=== PATIENT | male | born 1985 | race Caucasian/White ===

== ENCOUNTER 2018-08-21 11:32 | Observation (INO) | payer OTHER ==
--- NOTE | 2018-08-20 21:26 | PDGENHP ---
History and Physical - Chief Complaint LEFT HIP PAIN - History of Present Illness 1.~Bilateral~Femoroacetabular impingement (BLAKE) Cam type,~with~resultant labral tear; LEFT SIDE SYMPTOMATIC 2.~Apponeurosis~syndrome LEFT ADDUCTOR 3.~Left~Sacroiliac Joint Pain HISTORY OF PRESENT ILLNESS: Calebis a 33 y.o.~very~~active male~who I have had the pleasure to consult on today. 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 ~Caleb enjoys running (100 miles/week), lifting, cycling, and yoga. Deangelo's~left~hip pain~started January 2018, with~no~recalled trauma or injury, and with no~previous complaints. Calebdoes not have~a known history of hip dysplasia. Presentation today is of~anterior, posterior, lateral,~groin~left~hip pain. ~ The hip~does not~wake him~at night and does~click and catch on him. Sitting~can be uncomfortable~for him.~Calebdoes not~report suffering from lower back pain episodes. Calebhas~participated in physical therapy (more than 6 weeks-months)~and has~tried other conservative measures including LEFT~hip injection~during MR arthrogram (no detected relief)~, dry needling, chiropractic treatments and massage therapy.~Yayo~has not~received sufficient symptomatic improvement. Calebhas not~utilized medication for pain management. Calebdenies issues with the right~hip. ~ Calebunderstands that he~has a hip and pelvis problem which should be researched and wishes to get a better understanding of his~hip status, followed by an establishment of a treatment strategy, hoping henrywould be able to get back to his~well being active life. History: Past medical history:~~ None which is relevant~ Relevant familial history:~None which is relevant~ Past surgical history:~ None Calebhas never received general anesthesia. I have reviewed, verified and agree with the past medical, surgical, family and social history. Current Medications:~has a current medication list which includes the following prescription(s): ergocalciferol (vitamin d2) and ferrous sulfate. ALLERGIES:~has No Known Allergies. Objective: Physical Examination: Calebis 5~feet 7~inches tall and weighs 140~Lbs. Calebis AAO x3; he~ is well-nourished, in NAD. Skin is warm and dry. ~Breathing is non-labored. ~CV with RRR by pulse. Abdomen is soft, NTND. Currently,~he~walks with a normal~gait. Trendelenburg sign is~negative~and proprioception is normal,~both~sides. He~presents with no~signs of joint laxity. Beightons Score:~0 Lower spine examination is~negative~for sciatic or femoral nerve irritation with negative~SLR &~femoral stretch tests. Range of motion of the spine is normal~for flexion, extension, and rotations, with no~associated pain. Strength, Sensation and pulses are~normal -~bilaterally Ankles and knees exams are~normal~and no~mal-alignment is evident. He~has no leg length discrepancy. Thigh circumference is~symmetric~with no evidence for muscle atrophy~on both~ sides. Hip ROM (degrees): FL ER At 90~hip FL IR At 90~hip FL AB AD EX IR Neutral hip ER Neutral hip R 95 45 20 40 5 10 40 45 L 105 40 20 35 5 10 40 45 Specific hip and pelvis tests: Impingement Test RAGHAVENDRA Roll Add. Longus R Negative Negative Negative Negative L +++ +++ Negative Negative Glut. Med ITB Posterior Imp R Negative 5/5 strength Negative 5/5 strength Negative L Negative 5/5 strength Negative 5/5 strength Negative Squeeze test measured~strong Bony Symphysis pubis is~pain free~to touch while concentric activity of the rectus abdominis, does not~produce pain at its insertion. Ilio Psos specific tests are~positive for pain during cycling for~the left hip~ and no snap. HF has~good strength, no pain~both hips. Anterior/posterior~capsule tenderness LEFT Greater trochanteric burse is~pain free~on both hips. Piriformis tests: FAIR is~negative,~with no~local signs of neuritis related to sciatic nerve. SIJs examination is~produces pain on~left side~with normal~RAGHAVENDRA in relation and local tenderness. Hamstrings tests are~negative~functional contraction and positive~tendinopathy both hips. On a daily basis, the following percentages reflectRamez's overall total pain: Deep hip:~80% SIJ:~20% Imaging: Radiology studies which I have personally reviewed, analyzed and measured are below: XR: AP of the hip and pelvis: Performed in a~good~technique Coccyx~at the level of the~pubic symphysis 0~degrees [place] Lines are~preserved. Minimal~Pathological signs are seen in the Symphysis Pubis. Minimal~Pathological signs are seen at the Ischial tuberosity. ~ Specific measurements show: NSA~ LCE Sourcil~Angle Sharp's angle Lat. Cam Lat. Pincer C.Over~sign Head~Coverage % ATDmm R N 32 4 38 + - - N N L N 33 6 37 + - 12-12:30 N N Pos. wall sign ISS NAD ~~Dysplasia Comments R Negative Negative 18.3~mm Negative L Negative Negative 15.5~mm Negative Sclerosis Sup. Lat. OA Cysts Joint Space-WBZ Joint Space-Medial R Negative negative + 4.7~mm 3.9~mm L Negative + + 4.7~mm 3.4~mm X Table lateral: Anterior cam lesion is~seen~on both hips.~(FAM View shows femoral neck~pitting~ cyst) Alpha Angle: ~ Right~71~dergrees Left~64~degrees MRI shows:~femoral neck~pitting~cyst, good cartilage quality, no bone edema, labral tear Impression and plan:Ayan Ellisis a 33 y.o.~active male~suffering from symptomatic Left~hip pain due to Bilateral~Femoroacetabular impingement (BLAKE) Cam type,~with~resultant labral tear~causing significant disability to him~and altering his~sport and life activities. Physical examination, imaging, and~his~story correspond with the diagnosis mentioned above. I explained that femoroacetabular impingement (BLAKE) arises due to a bony or soft tissue conflict between the femur (ball) and acetabulum (socket) caused by an abnormality in the shape of the hip joint. Over time, repetitive impingement can result in damage to the labrum and adjacent surface cartilage within the socket, ultimately giving rise to progressive osteoarthritis of the hip. I explained that although a labral tear can be a source of pain, it is rarely the root of the problem and typically occurs secondary to an underlying abnormality in the shape and mechanics of the hip joint. ~ I reviewed conservative treatment options for BLAKE including activity modification to avoid positions of impingement, physical therapy, non-steroidal anti-inflammatory medications, and various injections (corticosteroid and PRP) aimed at reducing inflammation in the hip joint or/and preventing dynamic impingement. PRP injections may promote healing and reduce symptoms in certain cases but it will not repair chronically damaged tissue. Although these measures may help to buy time and reduce current level of symptoms, they are not a definitive solution to the problem given the underlying abnormality in the shape of the hip joint. Patients who have failed conservative management and continue to experience symptoms are candidates for hip arthroscopy, a minimally invasive surgery that can definitively address the underlying problem. Hip arthroscopy typically includes treating the labrum with either repair or reconstruction of the torn labrum; as well as addressing the underlying abnormalities by restoring the normal shape to the hip joint. ~If the cartilage is damaged a Microfracture surgical procedure may also be necessary to help stimulate the growth of fibrocartilage. ~If a patient requires a labral reconstruction or a Microfracture, the initial rehabilitation from the surgery may take longer, but the [facility] results are typically favorable. I reviewed the technical aspects of hip arthroscopy including risks, benefits, and expected course of recovery.~Deangelo~understands that hip arthroscopy is a minimally invasive outpatient procedure carried out through small incisions on the outer aspect of the hip joint. During surgery, the labral tear will be identified and either repaired or reconstructed~using bone anchors and suture material. Additionally, any excessive bone will be removed with a high-speed hermelindo to reshape the hip joint and restore normal anatomy. Risks include infection, bleeding, injury to nearby nerves or vessels, stiffness, persistent pain, instability, venous thromboembolic disease, and traction related complications including temporary foot numbness. Rarely, revision surgery may be required to address these problems. Overall recovery takes approximately 4~ 8~months depending on the extent of damage and degree of repair. In the event that the labral tissue quality is inadequate for successful repair and healing,~Deangelo~understands that a labral reconstruction will be performed. This procedure entails placing a cadaver tissue graft within the hip joint and stabilizing it with bone anchors to build a new labrum. The overall recovery time for labral reconstruction is similar to that of labral repair, although the surgical procedure takes longer to perform. Deangelo~will review the info presented. In order to obtain more detailed information regarding the alignment, orientation, and shape of the bony hip and pelvis I will order a CT scan to be performed. The results of the CT scan, including femoral torsion and acetabular version measured values and 3D images, will aid me in deciding on the best treatment strategy and surgical pre-planning. Calebwill contact us if he~wishes to pursue further treatment in the future. Calebis happy with this plan. I have also supplied~him~with handouts, outlining the expected surgical treatment and rehab involved. I wish~DeangeloAyanall the best, ~~ Jean Blanco, PAC History Information - Allergies/Home Medication List Allergies/Adverse Reactions: No Known Allergies Allergy (Unverified 08/14/18 14:32) Home Medications: NK [No Known Home Meds] 08/14/18 [Last Taken Unknown] I have personally reviewed and updated: medical history - Social History Smoking Status: Never smoked Review of Systems Review of Systems: Physical Exam Physical Exam:
[2018-08-21] MEDS ORDERED: ceFAZolin 2 GM/DEXTROSE 100 ML IV ONE (11:45)
[2018-08-21] MEDS ORDERED: ACETAMINOPHEN 500 MG TAB PO ONE (11:45)
[2018-08-21] MEDS ORDERED: PREGABALIN 150 MG CAP PO ONE (11:45)
[2018-08-21] MEDS ORDERED: LR 1,000 ML IV ONE (11:47)
[2018-08-21] MEDS ORDERED: MIDAZOLAM 2 MG/2 ML VIAL IVP ONE (14:18)
--- NOTE | 2018-08-21 14:22 | PDANEPAE ---
ANE History of Present Illness 33year old with BLAKE ANE Past Medical History - Cardiovascular History Hx Hypertension: No Hx Arrhythmias: No Hx Chest Pain: No Hx Coronary Artery / Peripheral Vascular Disease: No Hx CHF / Valvular Disease: No Hx Palpitations: No - Pulmonary History Hx COPD: No Hx Asthma/Reactive Airway Disease: No Hx Recent Upper Respiratory Infection: No Hx Oxygen in Use at Home: No Hx Sleep Apnea: No Sleep Apnea Screening Result - Last Documented: Negative - Neurologic History Hx Cerebrovascular Accident: No Hx Seizures: No Hx Dementia: No - Endocrine History Hx Diabetes: No - Renal History Hx Renal Disorders: No - Liver History Hx Hepatic Disorders: No - Neurological & Psychiatric Hx Hx Neurological and Psychiatric Disorders: No - Cancer History Hx Cancer: No - Congenital Disorder History Hx Congenital Disorders: No - GI History Hx Gastrointestinal Disorders: No - Other Health History Other Health History: none - Chronic Pain History Chronic Pain: No - Surgical History Prior Surgeries: none ANE Review of Systems Review of Systems: - Exercise capacity METS (RN): 6 METS ANE Patient History - Allergies Allergies/Adverse Reactions: No Known Allergies Allergy (Unverified 08/14/18 14:32) - Home Medications Home Medications: Multivitamin 08/21/18 [Last Taken 1 Week Ago ~08/14/18] Vitamin D3 08/21/18 [Last Taken 1 Week Ago ~08/14/18] - NPO status NPO Since - Liquids (Date): 08/21/18 NPO Since - Liquids (Time): 10:45 NPO Since - Solids (Date): 08/20/18 NPO Since - Solids (Time): 19:30 - Anes Hx Anes Hx: no prior problems - Smoking Hx Smoking Status: Never smoked - Alcohol Use Alcohol Use: Occasionally - Family Anes Hx Family Anes Hx: none Family Hx Anesthesia Complications: none ANE Labs/Vital Signs - Vital Signs Blood Pressure: 119/75 Heart Rate: 67 Respiratory Rate: 18 O2 Sat (%): 98 Height: 170.18 cm Weight: 65.771 kg ANE Physical Exam - Airway Neck exam: FROM Mallampati Score: Class 1 Mouth exam: normal dental/mouth exam - Pulmonary Pulmonary: no respiratory distress, clear to auscultation - Cardiovascular Cardiovascular: regular rate and rhythym ANE Anesthesia Plan Anesthesia Plan: general endotracheal anesthesia
[2018-08-21] MEDS ORDERED: BUPIVACAINE/EPI 0.25% 30 ML SDV ONE (14:25)
[2018-08-21] MEDS ORDERED: EPINEPHrine 30 MG/30 ML MDV (0.1 MG/0.1 ML) ONE (14:26)
[2018-08-21] MEDS ORDERED: fentaNYL 100 MCG/2 ML INJ ONE ×3 (15:06→19:20)
[2018-08-21] MEDS ORDERED: PROPOFOL 200 MG/20 ML VIAL ONE (15:06)
[2018-08-21] MEDS ORDERED: fentaNYL 100 MCG/2 ML INJ IVP PRN (20:02)
[2018-08-21] MEDS ORDERED: oxyCODONE IR 5 MG TAB PO PRN ×2 (20:02→22:50)
[2018-08-21] MEDS ORDERED: HYDROmorphONE/DILAUDID 2 MG/ML INJ IVP PRN (20:02)
[2018-08-21] MEDS ORDERED: DIAZEPAM 5 MG/ML 1 ML SYR IVP PRN (20:02)
[2018-08-21] MEDS ORDERED: HYDROCODONE/APAP 5/325 TAB PO PRN (20:02)
[2018-08-21] MEDS ORDERED: NALOXONE HCL 0.4 MG/ML INJ IVP PRN (20:02)
[2018-08-21] MEDS ORDERED: PROMETHAZINE HCL 25 MG/ML INJ IVP PRN ×2 (20:02→22:50)
--- NOTE | 2018-08-21 20:05 | POSTANESTH ---
Post Anesthetic Evaluation Cardiovascular Status: Normal, Stable Respiratory Status: Normal, Stable Level of Consciousness/Mental Status: Can Participate in Eval Pain Control: Adequate, Prn Tx Ordered Nausea/Vomiting Control: Adequate, Prn Tx Ordered Complications Possibly Related to Anesthesia: None Noted
[2018-08-21] MEDS ORDERED: ONDANSETRON 4 MG/2 ML VIAL ONE ×2 (20:30→21:05)
[2018-08-21] MEDS: ONDANSETRON 4 MG/2 ML VIAL IVP PRN ×2 (20:33→22:33)
[2018-08-21] MEDS ORDERED: PROMETHAZINE HCL 25 MG/ML INJ ONE (21:05)
[2018-08-21] MEDS ORDERED: ONDANSETRON 4 MG/2 ML VIAL IVP PRN (22:50)
[2018-08-21] MEDS ORDERED: ONDANSETRON DISINTEGRATING 4 MG TAB PO PRN (22:50)
[2018-08-21] MEDS ORDERED: HYDROmorphONE/DILAUDID 1 MG/ML INJ IVP PRN (22:50)
[2018-08-21] MEDS ORDERED: DIAZEPAM 2 MG TAB PO PRN (22:53)
[2018-08-22 06:53] VITALS: BP 104/59
[2018-08-22] MEDS ORDERED: NAPROXEN SODIUM 220 MG TAB PO SCH (09:00)
--- NOTE | 2018-08-22 12:34 | ASDISCHSUM ---
Discharge Information Plan Status:Home with No Needs Medically Cleared to Leave:08/21/2018 Discharge Date:08/21/2018 CM D/C Disposition:Home, Routine, Self-Care ADT D/C Disposition:Home, Routine, Self-Care Projected Discharge Date:08/21/2018 Transportation at D/C:Family Discharge Delay Reason: Follow-Up Date:08/21/2018 Discharge Slot:1 - 8:01 am - 12:00 noon Final Diagnosis:Acetabular impingement, labral tear, s/p left hip arthroplasty, left hip femoroplast y, left hip labral repair Placement Information Patient Contact Information Contact Name:QUINCY Relationship:Mother Address:[address] Work Phone: Areli:[employer] Alternate Phone: [facility]/Zip Code:[place] [address] Email: Financial Information Financial Class:HMO and PPO Plans Primary Plan Desc:[employer] Primary Plan Number:[id number] Secondary Plan Desc: Secondary Plan Number: Assessment Information LACE LACE Length of stay for Answers: 1 day current admission Acuity / Level of Answers: No Care: Did the patient have an inpatient admission? # of Emergency department Answers: 0 visits in the last 6 months Score: 1 Date Signed: 08/22/2018 10:55 AM Electronically Signed By:Michelle Jordan RN [facility] Progress Note CM Note CM Note Notes: Reviewed chart. Pt admitted for a planned left hip arthroplasty, left hip femoroplasty and a left hip labral repair. No significant history. Pt is single and lives in [place]. Pt to discharge home independently with no identified needs. No YOLY/HELEN signed, not applicable. Pt to follow up as directed. CM available for any further issues or concerns. Discharge Plan: Home independently Date Signed: 08/22/2018 10:58 AM Electronically Signed By:Michelle Jordan RN Intervention Information
--- NOTE | 2018-08-22 12:39 | ASMTLACE ---
DAQUAN Length of stay for Answers: 1 day current admission Acuity / Level of Answers: No Care: Did the patient have an inpatient admission? # of Emergency department Answers: 0 visits in the last 6 months Score: 1 Date Signed: 08/22/2018 10:55 AM Electronically Signed By:Michelle Jordan RN
--- NOTE | 2018-08-22 12:39 | ASMTCMCOM ---
CM Note CM Note Notes: Reviewed chart. Pt admitted for a planned left hip arthroplasty, left hip femoroplasty and a left hip labral repair. No significant history. Pt is single and lives in [place]. Pt to discharge home independently with no identified needs. No IM/CERVANTES signed, not applicable. Pt to follow up as directed. CM available for any further issues or concerns. Discharge Plan: Home independently Date Signed: 08/22/2018 10:58 AM Electronically Signed By:Michelle Jordan RN
== END 2018-08-22 12:10 | disposition home or self-care (01) ==
LOC: FSGY 11:32 → F3N 22:50
PROVIDERS: ADMIT Orthopaedic Surgery Sports Medicine; ATTEND Orthopaedic Surgery Sports Medicine
DX: M25.852 Other specified joint disorders, left hip (principal); M25.851 Other specified joint disorders, right hip
CPT/HCPCS: 29914; 29916; 76001; G0378; C1713; J0171; J0690; J2250; J2405; J2550; J2704; J3010

== ENCOUNTER 2019-01-18 06:35 | Day surgery (SDC) | payer OTHER ==
--- NOTE | 2019-01-16 21:53 | PDGENHP ---
History and Physical - Chief Complaint RIGHT HIP PAIN - History of Present Illness Diagnosis: 1. RIGHT~Femoroacetabular impingement (BLAKE) Cam type,~with~resultant labral tear 2. 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 ~Caleb enjoys running (100 miles/week), lifting, cycling, and yoga. Deangelo's~RIght~hip pain~started January 2018, with~no~recalled trauma or injury , and with~no~previous complaints.~Calebdoes not have~a known history of hip dysplasia. Presentation today is of~anterior, posterior, lateral,~groin~Right~hip pain. ~ The hip~does not~wake him~at night and~does~click and catch on~him. Sitting~can be uncomfortable~for him.~Calebdoes not~report suffering from lower back pain episodes. Calebhas~participated in physical therapy (more than 6 weeks-months)~and has~tried other conservative measures including LEFT~hip injection~during MR arthrogram (no detected relief)~, dry needling, chiropractic treatments and massage therapy.~Henryhas not~received sufficient symptomatic improvement. Calebhas not~utilized medication for pain management. Calebdenies issues with the right~hip. ~ Calebunderstands that~henryhas a hip and pelvis problem which should be researched and wishes to get a better understanding of~his~hip status, followed by an establishment of a treatment strategy, hopingsherlynwould be able to get back to~his~well being active life. History: Past medical history:~~ None which is relevant~ Relevant familial history:~None which is relevant~ Past surgical history:~ LEFT HIP ARTHROSCOPY Calebdenies issues with general anesthesia. I have reviewed, verified and agree with the past medical, surgical, family and social history. Current Medications:~has a current medication list which includes the following prescription(s): ergocalciferol (vitamin d2) and ferrous sulfate. ALLERGIES:~has No Known Allergies. Objective: Physical Examination: Calebis 5~feet~7~inches tall and weighs~140~Lbs. Calebis AAO x3; gregory~ is well-nourished, in NAD. Skin is warm and dry. ~Breathing is non-labored. ~CV with RRR by pulse. Abdomen is soft, NTND. Currently,~gregory~walks with a~normal~gait. Trendelenburg sign is~negative~and proprioception~is normal,~both~sides. Gregory~presents~with no~signs of joint laxity.~Beightons Score:~0 Lower spine examination is~negative~for sciatic or femoral nerve irritation with negative~SLR &~femoral stretch tests. Range of motion of the spine is normal~for flexion, extension, and rotations,~with no~associated pain. Strength, Sensation and pulses are~normal -~bilaterally Ankles and knees exams are~normal~and~no~mal-alignment is evident.~ Gregory~has~no leg length discrepancy. Thigh circumference is~symmetric~with no evidence for muscle atrophy~on both~ sides. Hip ROM (degrees): FL ER At 90~hip FL IR At 90~hip FL AB AD EX IR Neutral hip ER Neutral hip R 95 45 20 40 5 10 40 45 L 105 40 20 35 5 10 40 45 Specific hip and pelvis tests: Impingement Test RAGHAVENDRA Roll Add. Longus R Negative Negative Negative Negative L +++ +++ Negative Negative Glut. Med ITB Posterior Imp R Negative 5/5 strength Negative 5/5 strength Negative L Negative 5/5 strength Negative 5/5 strength Negative Squeeze test measured~strong Bony Symphysis pubis is~pain free~to touch while concentric activity of the rectus abdominis, does not~produce pain at its insertion. Ilio Psos specific tests are~positive for pain during cycling for~the left hip~ and no snap. HF has~good strength, no pain~both hips. Anterior/posterior~capsule tenderness LEFT Greater trochanteric burse is~pain free~on both hips. Piriformis tests: FAIR is~negative,~with no~local signs of neuritis related to sciatic nerve. SIJs examination is~produces pain on~left side~with~normal~RAGHAVENDRA in relation and local tenderness. Hamstrings tests are~negative~functional contraction and positive~tendinopathy both hips. On a daily basis, the following percentages reflectRamez's overall total pain: Deep hip:~80% SIJ:~20% Imaging: Radiology studies which I~have personally reviewed, analyzed and measured are below: XR: AP of the hip and pelvis: Performed in a~good~technique Coccyx~at the level of the~pubic symphysis 0~degrees [place]~Lines are preserved. Minimal~Pathological signs are seen in the Symphysis Pubis.~ Minimal~Pathological signs are seen at the Ischial~tuberosity. ~ Specific measurements show: NSA~ LCE Sourcil~Angle Sharp's angle Lat. Cam Lat. Pincer C.Over~sign Head~Coverage % ATDmm R N 32 4 38 + - - N N L N 33 6 37 + - 12-12:30 N N Pos. wall sign ISS NAD ~~Dysplasia Comments R Negative Negative 18.3~mm Negative L Negative Negative 15.5~mm Negative Sclerosis Sup. Lat. OA Cysts Joint Space-WBZ Joint Space-Medial R Negative negative + 4.7~mm 3.9~mm L Negative + + 4.7~mm 3.4~mm X Table lateral: Anterior cam lesion is~seen~on both hips.~(FAM View shows femoral neck~pitting~ cyst) Alpha Angle: ~ Right~71~dergrees Left~64~degrees MRI shows:~femoral neck~pitting~cyst, good cartilage quality, no bone edema, labral tear Impression and plan:Ayan Ellisis a~33 y.o.~active male~suffering from symptomatic~Right~hip pain due to Bilateral~Femoroacetabular impingement (BLAKE) Cam type,~with~resultant labral tear~causing significant disability to~him~and altering~his~sport and life activities. Physical examination, imaging, and~his~story correspond with the diagnosis mentioned above. I explained that femoroacetabular impingement (BLAKE) arises due to a bony or soft tissue conflict between the femur (ball) and acetabulum (socket) caused by an abnormality in the shape of the hip joint. Over time, repetitive impingement can result in damage to the labrum and adjacent surface cartilage within the socket, ultimately giving rise to progressive osteoarthritis of the hip. I explained that although a labral tear can be a source of pain, it is rarely the root of the problem and typically occurs secondary to an underlying abnormality in the shape and mechanics of the hip joint. ~ I reviewed conservative treatment options for BLAKE including activity modification to avoid positions of impingement, physical therapy, non-steroidal anti-inflammatory medications, and various injections (corticosteroid and PRP) aimed at reducing inflammation in the hip joint or/and preventing dynamic impingement. PRP injections may promote healing and reduce symptoms in certain cases but it will not repair chronically damaged tissue. Although these measures may help to buy time and reduce current level of symptoms, they are not a definitive solution to the problem given the underlying abnormality in the shape of the hip joint. Patients who have failed conservative management and continue to experience symptoms are candidates for hip arthroscopy, a minimally invasive surgery that can definitively address the underlying problem. Hip arthroscopy typically includes treating the labrum with either repair or reconstruction of the torn labrum; as well as addressing the underlying abnormalities by restoring the normal shape to the hip joint. ~If the cartilage is damaged a Microfracture surgical procedure may also be necessary to help stimulate the growth of fibrocartilage. ~If a patient requires a labral reconstruction or a Microfracture, the initial rehabilitation from the surgery may take longer, but the rat exterminator results are typically favorable. I reviewed the technical aspects of hip arthroscopy including risks, benefits, and expected course of recovery.~Deangelo~understands that hip arthroscopy is a minimally invasive outpatient procedure carried out through small incisions on the outer aspect of the hip joint. During surgery, the labral tear will be identified and either repaired or reconstructed~using bone anchors and suture material. Additionally, any excessive bone will be removed with a high-speed hermelindo to reshape the hip joint and restore normal anatomy. Risks include infection, bleeding, injury to nearby nerves or vessels, stiffness, persistent pain, instability, venous thromboembolic disease, and traction related complications including temporary foot numbness. Rarely, revision surgery may be required to address these problems. Overall recovery takes approximately 4~ 8~months depending on the extent of damage and degree of repair. In the event that the labral tissue quality is inadequate for successful repair and healing,~Deangelo~understands that a labral reconstruction will be performed. This procedure entails placing a cadaver tissue graft within the hip joint and stabilizing it with bone anchors to build a new labrum. The overall recovery time for labral reconstruction is similar to that of labral repair, although the surgical procedure takes longer to perform. DeangeloAyanwill review the info presented. In order to obtain more detailed information regarding the alignment, orientation, and shape of the bony hip and pelvis I will order a CT scan to be performed. The results of the CT scan, including femoral torsion and acetabular version measured values and 3D images, will aid me in deciding on the best treatment strategy and surgical pre-planning. Calebwill contact us if he~wishes to pursue further treatment in the future. Calebis happy with this plan. I have also supplied~him~with handouts, outlining the expected surgical treatment and rehab involved. I wish~Caleball the best, ~~ MORAIMA Amaya History Information - Allergies/Home Medication List Allergies/Adverse Reactions: No Known Allergies Allergy (Unverified 01/13/19 16:51) Home Medications: Cholecalciferol Vit D3 [Vitamin D3 (*)] 1,000 units PO DAILY 08/22/18 [Last Taken 08/14/18] Multivitamins [Multivitamin (*)] 1 each PO DAILY 08/22/18 [Last Taken 08/14/18] I have personally reviewed and updated: medical history - Social History Smoking Status: Never smoked Review of Systems Review of Systems: Physical Exam Physical Exam:
[2019-01-18] MEDS ORDERED: PREGABALIN 150 MG CAP PO ONE (07:15)
[2019-01-18] MEDS ORDERED: ceFAZolin 2 GM/DEXTROSE 100 ML IV ONE (07:15)
[2019-01-18] MEDS ORDERED: ACETAMINOPHEN 500 MG TAB PO ONE (07:15)
[2019-01-18] MEDS ORDERED: LIDOCAINE 1% 2 ML INJ ID PRN (07:16)
[2019-01-18] MEDS ORDERED: LR 1,000 ML IV ONE (07:16)
[2019-01-18] MEDS ORDERED: MIDAZOLAM 2 MG/2 ML VIAL IVP ONE (08:23)
--- NOTE | 2019-01-18 08:23 | PDANEPAE ---
ANE Past Medical History - Cardiovascular History Hx Hypertension: No Hx Arrhythmias: No Hx Chest Pain: No Hx Coronary Artery / Peripheral Vascular Disease: No Hx CHF / Valvular Disease: No Hx Palpitations: No - Pulmonary History Hx COPD: No Hx Asthma/Reactive Airway Disease: No Hx Recent Upper Respiratory Infection: No Hx Oxygen in Use at Home: No Hx Sleep Apnea: No Sleep Apnea Screening Result - Last Documented: Negative - Neurologic History Hx Cerebrovascular Accident: No Hx Seizures: No Hx Dementia: No - Endocrine History Hx Diabetes: No - Renal History Hx Renal Disorders: No - Liver History Hx Hepatic Disorders: No - Neurological & Psychiatric Hx Hx Neurological and Psychiatric Disorders: No - Cancer History Hx Cancer: No - Congenital Disorder History Hx Congenital Disorders: No - GI History Hx Gastrointestinal Disorders: No - Other Health History Other Health History: none - Chronic Pain History Chronic Pain: No - Surgical History Prior Surgeries: left hip scope femoroplastyw/labral repair 08/2018 ANE Review of Systems Review of Systems: - Exercise capacity METS (RN): 6 METS ANE Patient History - Allergies Allergies/Adverse Reactions: No Known Allergies Allergy (Unverified 01/18/19 07:27) - Home Medications Home Medications: Cholecalciferol Vit D3 [Vitamin D3 (*)] 1,000 units PO DAILY 08/22/18 [Last Taken 01/12/19] Multivitamins [Multivitamin (*)] 1 each PO DAILY 08/22/18 [Last Taken 01/12/19] - NPO status NPO Since - Liquids (Date): 01/18/19 NPO Since - Liquids (Time): 05:15 NPO Since - Solids (Date): 01/17/19 NPO Since - Solids (Time): 19:00 - Smoking Hx Smoking Status: Never smoked - Family Anes Hx Family Hx Anesthesia Complications: none ANE Labs/Vital Signs - Vital Signs Blood Pressure: 106/73 Heart Rate: 56 Respiratory Rate: 9 O2 Sat (%): 98 Height: 170.18 cm Weight: 67.132 kg ANE Physical Exam - Airway Neck exam: FROM Mallampati Score: Class 2 Mouth exam: normal dental/mouth exam - Pulmonary Pulmonary: no respiratory distress - Cardiovascular Cardiovascular: regular rate and rhythym - ASA Status ASA Status: I ANE Anesthesia Plan Anesthesia Plan: general endotracheal anesthesia
[2019-01-18] MEDS ORDERED: PROPOFOL/EMULSION 500 MG/50 ML BOTTLE IV ONE ×4 (08:35→12:55)
[2019-01-18] MEDS ORDERED: REMIFENTANIL HCL 1 MG VIAL ONE (08:35)
[2019-01-18] MEDS ORDERED: fentaNYL 100 MCG/2 ML INJ ONE ×3 (08:35→13:12)
[2019-01-18] MEDS ORDERED: ROCURONIUM 100 MG/10 ML VIAL ONE (08:41)
[2019-01-18] MEDS ORDERED: DEXAMETHASONE 4 MG/ML VIAL ONE ×2 (08:41)
[2019-01-18] MEDS ORDERED: ONDANSETRON 4 MG/2 ML VIAL ONE ×3 (08:42→15:37)
[2019-01-18] MEDS ORDERED: METOCLOPRAMIDE 10 MG/2 ML VIAL ONE (08:42)
[2019-01-18] MEDS ORDERED: LIDOCAINE 2% 100 MG/5 ML SYR ONE (08:42)
[2019-01-18] MEDS ORDERED: RANITIDINE 50 MG/2 ML VIAL ONE (08:48)
[2019-01-18] MEDS ORDERED: EPINEPHrine 1 MG/ML INJ ONE (09:12)
[2019-01-18] MEDS ORDERED: BUPIVACAINE/EPI 0.25% 30 ML SDV ONE (09:12)
[2019-01-18] MEDS ORDERED: ROCURONIUM 50 MG/5 ML VIAL ONE (11:11)
[2019-01-18] MEDS ORDERED: SUGAMMADEX SODIUM 200 MG/2 ML VIAL IVP ONE (12:26)
[2019-01-18] MEDS ORDERED: ALBUTEROL 3 ML DEYVIAL IH PRN (12:38)
[2019-01-18] MEDS ORDERED: HYDROmorphONE/DILAUDID 1 MG/ML INJ IVP PRN (12:38)
[2019-01-18] MEDS ORDERED: NALOXONE HCL 0.4 MG/ML INJ IVP PRN (12:38)
[2019-01-18] MEDS ORDERED: fentaNYL 100 MCG/2 ML INJ IVP PRN (12:38)
[2019-01-18] MEDS ORDERED: MEPERIDINE 25 MG/0.5 ML AMP IVP PRN (12:38)
[2019-01-18] MEDS ORDERED: PROMETHAZINE HCL 25 MG/ML INJ IVP PRN (12:38)
--- NOTE | 2019-01-18 14:26 | POSTANESTH ---
Post Anesthetic Evaluation Cardiovascular Status: Similar to Pre-Op Cond, Other, See Comment Level of Consciousness/Mental Status: Can Participate in Eval, Mildly Sleepy, Arousable Pain Control: Adequate, Prn Tx Ordered Nausea/Vomiting Control: Adequate, Prn Tx Ordered Complications Possibly Related to Anesthesia: None Noted
--- NOTE | 2019-01-18 15:03 | POSTOPPROG ---
Post Op Note Date of Operation: 01/18/19 Surgeon: Pb Rao Patient Resource Coordinator: Dr Coronel Anesthesia: GET(General Endotracheal) Pre-op Diagnosis: RIGHT BLAKE Post-op Diagnosis: RIGHT BLAKE Procedure: Right Hip Arthroscopy Inf/Abcess present in the surg proc area at time of surgery?: No
[2019-01-18] MEDS: ONDANSETRON 4 MG/2 ML VIAL IVP PRN ×2 (15:38→15:49)
[2019-01-18] MEDS ORDERED: PROMETHAZINE HCL 25 MG/ML INJ ONE (16:51)
[2019-01-18 18:21] VITALS: BP 102/58
== END 2019-01-18 18:04 | disposition home or self-care (01) ==
LOC: FSGY 06:35
PROVIDERS: ATTEND Orthopaedic Surgery Sports Medicine
PROC: 0SB94ZZ Excision of Right Hip Joint, Percutaneous Endoscopic Approach (ICD-10-PCS; principal; 2019-01-18 08:30)
PROC: BQ101ZZ Fluoroscopy of Right Hip using Low Osmolar Contrast (ICD-10-PCS; principal; 2019-01-18 08:30)
PROC: 0SQ94ZZ Repair Right Hip Joint, Percutaneous Endoscopic Approach (ICD-10-PCS; principal; 2019-01-18 08:30)
DX: M25.851 Other specified joint disorders, right hip (principal); S73.191D Other sprain of right hip, subsequent encounter; M65.9 Synovitis and tenosynovitis, unspecified; M62.89 Other specified disorders of muscle
CPT/HCPCS: C1713; J0171; J0690; J1100; J2001; J2250; J2405; J2550; J2704; J2765; J2780; J3010